=== PATIENT | female | born 2000 | race Caucasian/White ===

== ENCOUNTER → 2021-03-07 | Outpatient (CLI) | payer BC ==
[~2021-03-07] MED LIST: CEPH500 PO
== END | disposition home or self-care (01) ==
LOC: LAB SHORT 11:38
DX: D22.62 Melanocytic nevi of left upper limb, including shoulder (principal)
CPT/HCPCS: 88305

== ENCOUNTER → 2021-06-05 | Outpatient (CLI) | payer BC | END | disposition home or self-care (01) | LOC: LAB SHORT 13:20 → LAB 13:20 | DX: L02.91 Cutaneous abscess, unspecified (principal) | CPT/HCPCS: 87070; 87075; 87076; 87205 ==

== ENCOUNTER → 2022-02-22 | Outpatient (CLI) | payer BC ==
[2022-02-22 17:09] LABS: Influenza A Negative (NEGATIVE); Influenza B Negative (NEGATIVE)
== END | disposition home or self-care (01) ==
LOC: LAB SHORT 10:50
PROVIDERS: Hospitalist
DX: R50.9 Fever, unspecified (principal)
CPT/HCPCS: 87804

== ENCOUNTER → 2022-04-24 | Outpatient (CLI) | payer BC ==
[2022-04-24 18:54] LABS: BASOPHILS ABSOLUTE AUTO 0.04 K/mm3 (0.00-0.23); BASOPHILS PERCENT AUTO 1 % (0-2); EOSINOPHILS ABSOLUTE AUTO 0.16 K/mm3 (0.00-0.68); EOSINOPHILS PERCENT AUTO 2 % (0-6); Hematocrit 40.1 % (33.0-51.0); Hemoglobin 14.2 g/dL (11.5-16.0); IMMATURE GRAN ABSOLUTE AUTO 0.02 K/mm3 (0.00-0.10); IMMATURE GRAN PERCENT AUTO 0 % (0-1); LYMPHOCYTES ABSOLUTE AUTO 1.99 K/mm3 (0.84-5.20); LYMPHOCYTES PERCENT AUTO 26 % (21-46); MONOCYTES ABSOLUTE AUTO 0.69 K/mm3 (0.16-1.47); MONOCYTES PERCENT AUTO 9 % (4-13); Mean Corpuscular HGB Conc 35.4 g/dL (31.5-36.5); Mean Corpuscular Volume 93 fL (80-100); Mean Platelet Volume 9.2 fL (9.1-12.4); NEUTROPHILS ABSOLUTE AUTO 4.89 K/mm3 (1.96-9.15); NEUTROPHILS PERCENT AUTO 63 % (41-73); Platelet Count 362 K/mm3 (150-400); RDW Coefficient Variation 11.9 % (11.7-14.2); White Blood Cell Count 7.79 K/mm3 (4.00-11.30)
[2022-04-24 23:03] LABS: Percent Saturation 30.1 % (15.0-50.0); Thyroid Stimulating Hormone 1.2 uIU/mL (0.360-4.800)
== END | disposition home or self-care (01) ==
LOC: LAB SHORT 15:45
PROVIDERS: Hospitalist
DX: E55.9 Vitamin D deficiency, unspecified (principal); E61.1 Iron deficiency; R23.3 Spontaneous ecchymoses; R53.83 Other fatigue
CPT/HCPCS: 82306; 82728; 83540; 83550; 84443; 85025

== ENCOUNTER 2023-07-16 07:20 | Day surgery (SDC) | payer OTHER ==
[~2023-07-16] VITALS: Ht 167.6 cm; Wt 98.6 kg
[~2023-07-16 07:20] MED LIST changes: +ALBU90OI INH; +DESV50 PO; +FLUT.05NI; +LORA10ER PO; +MONT10T PO; +OMEP20ER PO; +PROP60; +TRAZ100 PO
[2023-07-16] MEDS ORDERED: PRENATAL TABLE1 EAC2 (08:06)
[2023-07-16] MEDS ORDERED: propofoL 40 ML IV ONE (08:07)
[2023-07-16] MEDS ORDERED: Lactated Ringer's 1,000 ML IV ONE ×2 (08:07→08:23)
[2023-07-16] MEDS ORDERED: Midazolam HCL 1 MG/ML 5MLVIAL ONE (08:16)
[2023-07-16] MEDS ORDERED: propofoL 20 ML IV ONE (08:56)
[2023-07-16 09:26] VITALS: BP 116/65
== END 2023-07-16 09:40 | disposition home or self-care (01) ==
LOC: ORSCSDS 07:20
PROVIDERS: Internal Medicine Gastroenterology
PROC: 0DB68ZX Excision of Stomach, Via Natural or Artificial Opening Endoscopic, Diagnostic (ICD-10-PCS; principal; 2023-07-16 08:30)
PROC: 0DJD8ZZ Inspection of Lower Intestinal Tract, Via Natural or Artificial Opening Endoscopic (ICD-10-PCS; principal; 2023-07-16 08:30)
PROC: 0DB98ZX Excision of Duodenum, Via Natural or Artificial Opening Endoscopic, Diagnostic (ICD-10-PCS; principal; 2023-07-16 08:30)
DX: K21.9 Gastro-esophageal reflux disease without esophagitis (principal); K59.00 Constipation, unspecified; J45.909 Unspecified asthma, uncomplicated; F41.9 Anxiety disorder, unspecified; F32.A Depression, unspecified; I10 Essential (primary) hypertension; Z79.899 Other long term (current) drug therapy
CPT/HCPCS: J2250; J2704; J7120

== ENCOUNTER 2023-10-16 08:27 | Day surgery (SDC) | payer OTHER ==
[~2023-10-16] VITALS: Ht 167.6 cm; Wt 92.5 kg
[~2023-10-16 08:27] MED LIST changes: +Lactated Ringer's 1,000 ML IV ONE; +PRENATAL TABLE1 EAC2; +propofoL 50 ML IV ONE
[2023-10-16] MEDS ORDERED: DESVENLAFAXINE25 MG (09:00)
[2023-10-16] MEDS ORDERED: PRILOSEC OTC20 MG (09:01)
[2023-10-16] MEDS ORDERED: Lactated Ringer's 1,000 ML IV ONE (09:19)
[2023-10-16 10:38] VITALS: BP 90/74
== END 2023-10-16 10:27 | disposition home or self-care (01) ==
LOC: ORSCSDS 08:27
PROVIDERS: Specialist
PROC: 0DJD8ZZ Inspection of Lower Intestinal Tract, Via Natural or Artificial Opening Endoscopic (ICD-10-PCS; principal; 2023-10-16 09:45)
DX: K62.5 Hemorrhage of anus and rectum (principal); K59.00 Constipation, unspecified; K64.8 Other hemorrhoids; J45.909 Unspecified asthma, uncomplicated; F32.A Depression, unspecified; F41.9 Anxiety disorder, unspecified; K21.9 Gastro-esophageal reflux disease without esophagitis; I10 Essential (primary) hypertension; Z79.899 Other long term (current) drug therapy
CPT/HCPCS: J2704; J7120

== ENCOUNTER → 2024-01-13 | Outpatient (CLI) | payer OTHER ==
[~2024-01-13] MED LIST changes: +DESVENLAFAXINE25 MG; -Lactated Ringer's 1,000 ML IV ONE; +PRILOSEC OTC20 MG; -propofoL 50 ML IV ONE
[2024-01-13 19:41] LABS: U Amphetamine Screen Not Detected; U Barbituate Screen Not Detected; U Benzodiazapine Screen Not Detected; U Buprenorphine Screen Not Detected; U Cannabinoids Screen Not Detected; U Cocaine Screen Not Detected; U Methadone Screen Not Detected; U Methamphetamine Screen Not Detected; U Opiates Screen Not Detected; U Oxycodone Screen Not Detected; U Phencyclidine Screen Not Detected
== END | disposition home or self-care (01) ==
LOC: LAB SHORT 17:04 → LAB 17:04
PROVIDERS: Hospitalist
DX: F90.0 Attention-deficit hyperactivity disorder, predominantly inattentive type (principal)